=== PATIENT | male | born 1995 | race African-American/Black ===

== ENCOUNTER 2018-11-20 21:44 | Emergency (ER) | payer MEDICAID ==
[~2018-11-20] VITALS: Ht 175.3 cm; Wt 85.3 kg
[2018-11-20 21:48] VITALS: BP 102/72
--- NOTE | 2018-11-20 21:51 | NUR ---
PT AMBULATED TO BED 4.
--- NOTE | 2018-11-20 22:12 | NUR ---
DR. ALVAREZ BEDSIDE EVALUATING PT
== END 2018-11-20 22:20 | disposition home or self-care (01) ==
LOC: MED 21:44
DX: R05 Cough (principal); J34.89 Other specified disorders of nose and nasal sinuses
CPT/HCPCS: 99283